=== PATIENT | female | born 1940 | race Caucasian/White ===

== ENCOUNTER → 2022-04-05 | Day surgery (SDC) | payer MEDICARE, OTHER ==
[~2022-04-05] VITALS: Ht 165.1 cm; Wt 52.2 kg
[~2022-04-05] MED LIST: 8 HOUR650 MG PO; DICLOFENAC SODI75 MG PO; DILTIAZEM 24HR240 M1 PO; FAMOTIDINE40 MG PO; FLUTICASONE PRO16 GM; LEVOTHYROXINE50 MCG PO; LISINOPRIL10 MG PO; METOPROLOL SUCC50 MG PO; MISOPROSTOL200 MCG PO; MONTELUKAST SOD10 MG PO; SIMVASTATIN80 MG PO; VENTOLIN HFA18 GM INH; VITAMIN B-6100 MG PO; VITAMIN D3250 MC1 PO
== END | disposition home or self-care (01) ==
LOC: FAS 05:50
DX: M16.11 Unilateral primary osteoarthritis, right hip (principal); I10 Essential (primary) hypertension; E78.5 Hyperlipidemia, unspecified; J45.909 Unspecified asthma, uncomplicated; K21.9 Gastro-esophageal reflux disease without esophagitis; Z79.891 Long term (current) use of opiate analgesic; Z79.899 Other long term (current) drug therapy
CPT/HCPCS: 76000; J1040; J2250; J2704; J7120; Q9967